=== PATIENT | male | born 1985 | race Two or more races ===

== ENCOUNTER 2017-07-11 08:51 | Emergency (ER) | payer SELFPAY ==
[2017-07-11] MEDS ORDERED: Ibuprofen TAB* 800 MG PO ONE (09:20)
[2017-07-11] MEDS ORDERED: Tetan/Diph/Pertus SYR(Tdap)* 0.5 ML SYR(BOOSTRIX) use SYR IM ONE (09:20)
--- NOTE | 2017-07-11 09:25 | ED ---
Upper Extremity Pain - HPI Summary HPI Summary: Patient here with left middle finger crush injury while at work yesterday. He reports he was using a saws all to cut through a window frame and as he went through the last piece of metal, his saw released from the site, pinching his left middle finger between the soft and the metal cage he was standing in. He developed swelling, bruising and what he believes was a blood blister that popped immediately as he did have some bleeding from the area. Reports he washed his finger with both alcohol and hydrogen peroxide. He also ice this yesterday. He has not been able to bend his finger due to pain and stiffness. He denies numbness tingling or weakness. He is unsure of his last tetanus vaccine so will provide a booster here today. He is also not taken anything for pain or swelling since injury - agrees to try ibuprofen this morning. - History of Current Complaint Chief Complaint: EDLacSutureRecheck Stated Complaint: JAMMED FINGER Time Seen by Provider: 07/11/17 09:09 Hx Obtained From: Patient - Allergies/Home Medications Allergies/Adverse Reactions: Allergies Allergy/AdvReac Type Severity Reaction Status Date / Time No Known Allergies Allergy Verified 07/11/17 08:53 PMH/Surg Hx/FS Hx/Imm Hx Previously Healthy: Yes Endocrine/Hematology History: Denies: Hx Anticoagulant Therapy, Hx Blood Disorders - Immunization History Date of Tetanus Vaccine: unknown Immunizations Up to Date: Unable to Obtain/Confirm Infectious Disease History: No Infectious Disease History: Denies: Traveled Outside the [place] in Last 30 Days - Family History Known Family History: Positive: None - Social History Occupation: Employed Full-time - construction Lives: Alone Alcohol Use: Occasionally Hx Substance Use: No Substance Use Type: Reports: None Hx Tobacco Use: Yes Smoking Status (MU): Current Every Day Smoker Amount Used/How Often: 1PPD Review of Systems Positive: no symptoms reported Positive: Arthralgia, Myalgia, Decreased ROM, Edema Positive: Bruising Neurological: Negative Psychological: Normal All Other Systems Reviewed And Are Negative: Yes Physical Exam Triage Information Reviewed: Yes Vital Signs On Initial Exam: Initial Vitals Temp Pulse Resp BP Pulse Ox 99.0 F 72 16 151/100 97 07/11/17 08:54 07/11/17 08:54 07/11/17 08:54 07/11/17 08:54 07/11/17 08:54 Vital Signs Reviewed: Yes Appearance: Positive: Well-Appearing, No Pain Distress, Well-Nourished Skin: Positive: Warm, Skin Color Reflects Adequate Perfusion, Dry - ecchymosis over palmar surface of Lt middle finger - dried blood at pad/distal area of finger (will soak to better examine tissue); nail bed intact and w/o subungual hematoma Head/Face: Positive: Normal Head/Face Inspection Eyes: Positive: EOMI ENT: Positive: Hearing grossly normal Respiratory/Lung Sounds: Positive: Breath Sounds Present Cardiovascular: Positive: Pulses are Symmetrical in both Upper and Lower Extremities Musculoskeletal: Positive: Limited @ - Lt middle finger w/ limited ROM d/t pain/ edema, Pain @ - Lt middle finger TTP Neurological: Positive: Normal, Sensory/Motor Intact, Alert, Oriented to Person Place, Time, CN Intact II-III Psychiatric: Positive: Normal Procedures - Splinting Location: Lt middle finger Pre-Made Type: metal - with foam "u" Pre-Proc Neuro Vasc Exam: normal Post-Proc Neuro Vasc Exam: normal Diagnostics - Vital Signs Vital Signs Temp Pulse Resp BP Pulse Ox 07/11/17 08:54 99.0 F 72 16 151/100 97 - Laboratory Lab Statement: Any lab studies that have been ordered have been reviewed, and results considered in the medical decision making process. Course/Dx - Course Course Of Treatment: XR reviewed - agree w/ report distal tuft fx - small area of skin opening w/ oozing blood - will tx w/ anbx. Tx, f/u and danger s/sx reviewed. Pt agrees w/ plan. - Diagnoses Provider Diagnoses: Open fracture of distal phalanx of left middle finger Discharge - Sign-Out/Discharge Documenting (check all that apply): Discharge - Discharge Plan Condition: Stable Disposition: HOME Prescriptions: Cephalexin CAP* [Keflex CAP*] 500 mg PO QID #40 cap Ibuprofen TAB* [Motrin TAB* 600 MG] 600 mg PO Q6H PRN #20 tab PRN Reason: Pain Patient Education Materials: Crush Injury (ED) Forms: *Work Release Referrals: [facility] [Outside] No Primary Care Phys,NOPCP [Primary Care Provider] - Additional Instructions: Rest, ice, elevate and keep splint in place until cleared by medical provider Complete antibiotics as directed Take ibuprofen with food as needed for pain/swelling *If you develop severe swelling, purulent drainage, redness, streaking, fevers or chills, return to the emergency department - Billing Disposition and Condition Condition: STABLE Disposition: HOME
--- NOTE | 2017-07-11 09:44 | RAD ---
Indication: Crush injury distal LEFT third finger with associated laceration. Comparison: No relevant prior exams available on the [facility] PACS for comparison. Technique: 3 views LEFT third finger REPORT AND IMPRESSION: Nondisplaced comminuted fracture at the tuft of the distal phalanx. No subcutaneous emphysema or conspicuous foreign body evident. Normal articular alignment.
== END 2017-07-11 10:15 | disposition home or self-care (01) ==
LOC: ED 08:51
DX: S62.633B Displaced fracture of distal phalanx of left middle finger, initial encounter for open fracture (principal); W31.2XXA Contact with powered woodworking and forming machines, initial encounter; Y92.9 Unspecified place or not applicable; Z23 Encounter for immunization
CPT/HCPCS: 73140; 90471; 90715; 99282; A9270-GY